=== PATIENT | female | born 1935 | race Hispanic/Latino ===

== ENCOUNTER 2019-04-25 13:00 | Emergency (ER) | payer MEDICARE ==
[~2019-04-25 13:00] MED LIST: ALOE VERA PO; ASPI-1197 PO; ATOR40TA71 PO; CALCIUM PLUS D; GLIP10TA9 PO; LEVOTHYROXINE PO; LISI10TA7 PO; METF-446 PO; OXYBUTYNIN PO; [UNRECOGNIZED DRUG - OTHER] PO
[2019-04-25] MEDS ORDERED: HYDROCODONE/ACETAMINOPHEN 10/325 MG TAB ONE (13:13)
== END 2019-04-25 15:46 | disposition home or self-care (01) ==
LOC: EDH 13:00
DX: S52.502A Unspecified fracture of the lower end of left radius, initial encounter for closed fracture (principal); S52.612A Displaced fracture of left ulna styloid process, initial encounter for closed fracture; E11.9 Type 2 diabetes mellitus without complications; W18.39XA Other fall on same level, initial encounter; Y93.89 Activity, other specified; Y92.098 Other place in other non-institutional residence as the place of occurrence of the external cause; Y99.8 Other external cause status
CPT/HCPCS: 70450; 73070; 73110